=== PATIENT | female | born 1970 | race Caucasian/White ===

== ENCOUNTER 2020-01-01 14:51 | Outpatient (CLI) | payer OTHER, SELFPAY ==
--- NOTE | ~2020-01-01 | CT_ITS ---
EXAMINATION: CT abdomen pelvis wo/w con DATE: 01/01/2020 15:47 INDICATION: Hematuria. Abdominal pain. Dysuria. TECHNIQUE: Computed tomography (CT) of the abdomen and pelvis was performed without and with intraven ous contrast using a total of 130 mL Omnipaque-350 intravenous contrast with a double-bolus technique for simultaneous opacification of the renal parenchyma and renal collecting system. Automated exposu re control and iterative reconstruction technique were employed. The dose-length product was 2058.69 mGy-cm. COMPARISON: CT abdomen and pelvis 07/11/2018 FINDINGS: The visualized portions of the lung bases demonstrate mild atelectasis. A calcified left lung nodule and calcified left hilar lymph nodes are consistent with old granulomatous disease. No pleural effusi on. Cardiomegaly is noted. No pericardial effusion. There is a chronic 1.8 cm low-attenuation lesion in the liver, likely benign. There is a gallstone in the gallbladder, which is contracted. Calcificat ions in the spleen are consistent with old granulomatous disease. The pancreas and adrenal glands are normal. There are 5 stones in right kidney measuring up to 5 mm. There are 2 stones in left kidney m easuring up to 3 mm. There are cysts in the kidneys measuring up to 10 mm on the left. Right ureter i s not well-opacified distally. The ureters are normal. There is a filter in the infrarenal inferior v steffanie cava. The bladder is normal. There are no dilated loops of bowel. The appendix is normal. There a re no pathologically enlarged lymph nodes. There is no free intraperitoneal fluid. There is moderate thoracolumbar spondylosis. IMPRESSION: 1. Bilateral nonobstructing kidney stones. Reviewed, dictated and finalized at location B.
[2020-01-01 15:27] LABS: Estimated Glomerular Filt Rate > 60
== END 2020-01-01 14:52 | disposition home or self-care (01) ==
PROVIDERS: PCP Family Medicine; Visit Provider Physician Assistant
DX: N20.0 Calculus of kidney (principal)
CPT/HCPCS: 36415; 74178; Q9967

== ENCOUNTER 2020-01-04 09:27 | Outpatient (CLI) | payer OTHER, SELFPAY ==
[2020-01-04 09:45] LABS: Basophils Absolute Auto 0.1 K/mm3 (0.0-0.1); Basophils Percent Auto 0.7 % (0.2-1.2); Eosinophils Absolute Auto 0.4 K/mm3 (0-0.3); Eosinophils Percent Auto 3.3 % (0-4.4); Hematocrit 43.7 % (37.0-47.0); Hemoglobin 13.8 g/dL (12.0-15.0); Immature Granulocyte Absolute 0.05 K/mm3 (0.00-0.031); Immature Granulocyte Percent A 0.4 % (0-0.5); Lymphocytes Absolute Auto 1.67 K/mm3 (0.9-3.2); Lymphocytes Percent Auto 14.2 % (18.3-44.2); Mean Corpuscular HGB Conc 31.6 g/dl (32-36); Mean Corpuscular Hemoglobin 29.6 pg (26-34); Mean Corpuscular Volume 93.8 fl (80-100); Mean Platelet Volume 9.9 fl (7.4-10.4); Monocytes Absolute Auto 0.9 K/mm3 (0.1-0.6); Monocytes Percent Auto 7.4 % (2.6-8.5); Neutrophils Absolute Auto 8.7 K/mm3 (1.3-6.7); Platelet Count Result 355 k/mm3 (150-375); Red Blood Count 4.66 M/mm3 (4.2-5.4); Red Cell Distribution Width 13.8 % (11.5-14.5); White Blood Count 11.7 K/mm3 (4.5-10.0)
[2020-01-04 09:51] LABS: Add Urine Microscopic? YES; Appearance Urine Clear (Clear); Bilirubin Urine Negative (Negative); Blood Urine 2+ (Negative); Color Urine Yellow (Yellow); Glucose Urine UA Negative (Negative); Ketones Urine Negative (Negative); Leukocyte Esterase Ur Trace LEU/UL (NEGATIVE); Mucus Urine Few /lpf; Nitrate Urine Negative (Negative); Protein Urine Negative (Negative); RBC Urine 21-50 /hpf (0-2); Specific Grav Ur 1.017 (1.001-1.035); Squamous Epithelial Cell Urine Moderate /hpf (Few); Urobilinogen Urine Negative mg/dL (<2.0)
[2020-01-04 10:04] LABS: Alanine Aminotransferase 18 U/L (4-35); Albumin Level 4.2 g/dL (3.5-5.1); Alkaline Phosphatase 93 U/L (38-126); Amylase 57 U/L (30-110); Anion Gap 5 mmol/L (8-16); Aspartate Amino Transferase 23 U/L (14-36); Bilirubin,Total 0.1 mg/dL (0.2-1.3); Blood Urea Nitrogen 16 mg/dL (7-17); Calcium 8.9 mg/dL (8.4-10.2); Carbon Dioxide 31 mmol/L (22-30); Chloride 104 mmol/L (98-107); Estimated Glomerular Filt Rate > 60; Glucose 84 mg/dL (65-105); Lipase 40 U/L (23-300); Potassium 3.6 mmol/L (3.4-5.0); Sodium 140 mmol/L (137-145)
== END 2020-01-04 09:28 | disposition home or self-care (01) ==
LOC: ANHLAB 09:29
PROVIDERS: PCP Family Medicine; Visit Provider Physician Assistant
DX: R10.9 Unspecified abdominal pain (principal); R11.2 Nausea with vomiting, unspecified; R19.7 Diarrhea, unspecified; R30.0 Dysuria
CPT/HCPCS: 36415; 80053; 81001; 82150; 83690; 84443; 85025; 87086

== ENCOUNTER 2020-07-09 16:26 | Emergency (ER) | payer OTHER, SELFPAY ==
--- NOTE | ~2020-07-09 | CT_ITS ---
EXAMINATION: CTA chest PE protocol EXAM DATE: 07/09/2020 20:09 INDICATION: Shortness of breath. TECHNIQUE: Spiral CTA of the chest (pulmonary arteries) was performed with 100 cc Omnipaque 350 intr avenous contrast injection. Images were acquired during the pulmonary arterial phase. Coronal maxi mum intensity projection 3D-reconstructions were created by the technologist on dedicated workstation . Axial, coronal and sagittal reformatted images were reviewed. The dose-length product (DLP) for t his examination was 339.16 mGy-cm. The exposure was tailored according to patient size (auto mA exp osure control), and iterative reconstruction (ASIR) was used as additional dose reduction technique. Correlation is made to abdomen pelvis CT 07/11/2018. FINDINGS: Pulmonary arteries are well opacified and without intraluminal filling defects. No thora cic aortic dissection. There is 4 mm right lateral sulcus pulmonary nodule unchanged compared to 201 9, noncalcified granuloma. There is linear lingular atelectasis. There are no pleural or pericardial effusions. Tracheobronchial tree is patent. There is no mediastinal, hilar or axillary lymphaden opathy. There is no pneumothorax. Heart normal in size. No evidence of coronary arterial calcif ication. Peripherally calcified gallstone. There is thoracic spondylosis without osteoblastic or os teolytic lesions identified. IMPRESSION: 1. No acute cardiac pulmonary findings. 2. Linear left basilar atelectasis. Reviewed, dictated and finalized at location A. F HUMAN RESOURCES OFFICER
--- NOTE | ~2020-07-09 | XR_ITS ---
EXAMINATION: XR chest 2V EXAM DATE: 07/09/2020 17:33 INDICATION: Lower extremity swelling, history of blood clots and hypertension. TECHNIQUE: Frontal and lateral projections of the chest obtained and reviewed. There is no prior pradeep dy for comparison. FINDINGS: Small amount of linear left basilar atelectasis. The lungs are otherwise clear. There are no pleural effusions. The cardiomediastinal silhouette is within normal limits. There is no pneumo thorax suspected. The bones and soft tissues are unremarkable. IMPRESSION: Small amount of linear left basilar atelectasis. Reviewed, dictated and finalized at location A. K CUTTER
[2020-07-09 16:36] VITALS: BP 91/63; PULSE 83; RESP 18; TEMP 35.9; O2SAT 100
--- NOTE | 2020-07-09 16:38 | ECG_ITS ---
Measurements Intervals [place] Rate: 82 P: 58 NM: 170 QRS: 46 QRSD: 113 T: 44 QT: 364 QTc: 427 Interpretive Statements SINUS RHYTHM EARLY PRECORDIAL R/S TRANSITION, CONSIDER RIGHT VENTRICULAR HYPERTROPHY MINIMAL Q WAVES- HIGH LATERAL LEADS BASELINE ARTIFACT- I, III, AVL BORDERLINE ECG Electronically Signed On 07-10-2020 9:36:10 ER REGISTRAR by Ced Medina D.O.
[2020-07-09 16:57] LABS: Basophils Absolute Auto 0.1 K/mm3 (0.0-0.1); Basophils Percent Auto 0.4 % (0.2-1.2); Eosinophils Absolute Auto 0.4 K/mm3 (0-0.3); Eosinophils Percent Auto 2.6 % (0-4.4); Hematocrit 43.1 % (37.0-47.0); Immature Granulocyte Absolute 0.11 K/mm3 (0.00-0.031); Immature Granulocyte Percent A 0.7 % (0-0.5); Lymphocytes Absolute Auto 1.94 K/mm3 (0.9-3.2); Lymphocytes Percent Auto 12.4 % (18.3-44.2); Mean Corpuscular HGB Conc 32.5 g/dl (32-36); Mean Corpuscular Hemoglobin 30.3 pg (26-34); Mean Corpuscular Volume 93.3 fl (80-100); Mean Platelet Volume 10.2 fl (7.4-10.4); Monocytes Absolute Auto 1.5 K/mm3 (0.1-0.6); Monocytes Percent Auto 9.6 % (2.6-8.5); Neutrophils Absolute Auto 11.6 K/mm3 (1.3-6.7); Neutrophils Percent Auto 74.3 % (45.5-73.1); Platelet Count Result 212 k/mm3 (150-375); Red Blood Count 4.62 M/mm3 (4.2-5.4); Red Cell Distribution Width 12.6 % (11.5-14.5); White Blood Count 15.6 K/mm3 (4.5-10.0)
[2020-07-09 17:10] LABS: Anion Gap 7 mmol/L (8-16); Blood Urea Nitrogen 23 mg/dL (7-17); Calcium 9.7 mg/dL (8.4-10.2); Carbon Dioxide 30 mmol/L (22-30); Chloride 101 mmol/L (98-107); Estimated CRCL calculation 87 ml/min; Estimated Glomerular Filt Rate > 60; Glucose 132 mg/dL (65-105); Potassium 3.7 mmol/L (3.4-5.0); Sodium 138 mmol/L (137-145)
--- NOTE | 2020-07-09 17:26 | PC.NURSE ---
called chem and heme, added on PT INR, PTT, Hepatic Panel, Trop Baseline, and BNP [id number]
[2020-07-09 17:42] LABS: Partial Thromboplastin Time 28.7 SECONDS (22.3-36.8); Prothrombin Time 13.4 Seconds (11.1-14.7)
[2020-07-09 17:46] LABS: Alanine Aminotransferase 25 U/L (4-35); Albumin Level 3.9 g/dL (3.5-5.1); Alkaline Phosphatase 120 U/L (38-126); Aspartate Amino Transferase 39 U/L (14-36); Bilirubin,Total 0.7 mg/dL (0.2-1.3)
[2020-07-09 17:59] LABS: NT Pro B Type Natriuretic Pept 69 PG/ML (5-100); Troponin I < 0.012 ng/mL (0.000-0.034)
--- NOTE | 2020-07-09 19:15 | ED.GENADULT ---
HPI - General Adult General Chief complaint: Extremity Problem,Nontraumatic Stated complaint: fluid retention in lower legs Time Seen by Provider: 07/09/20 18:39 Source: patient History of Present Illness HPI narrative: Patient is a 50 y/o female complaining of severe bilateral leg swelling for 2 weeks. There is no alleviating or exacerbating factor. She also has some SOB. She states that she has history of DVT and PE. However, she is not on anticoagulation at this time. Review of Systems Constitutional: Constitutional: Denies chills, Denies fever(s), Denies headache(s) and Denies weakness Eyes: Eyes: Denies blurry vision ENT: Denies headache(s) and Denies neck pain Cardiovascular: Cardiovascular: Denies chest pain, Reports leg edema and Reports dyspnea Respiratory: Respiratory: Denies cough and Reports dyspnea Gastrointestinal: Gastrointestinal: Denies abdominal pain, Denies diarrhea, Denies nausea and Denies vomiting Genitourinary: Genitourinary: Denies hematuria and Denies dysuria Musculoskeletal: Musculoskeletal: Denies back pain and Denies neck pain Neurologic: Denies headache(s) and Denies weakness Exam Const: General: no acute distress and well developed Orientation/consciousness: oriented to person, oriented to place, oriented to time and patient oriented x3 HENMT: Head: normocephalic Ears: external ears normal General nose exam: Normal external nose present Eyes: General: appearance normal, both eyes and all related structures Conjunctivae: conjunctivae normal Neck: Neck: normal visual inspection and full ROM Chest: Chest palpation & inspection: normal inspection of the chest and no tenderness Resp: Effort & Inspection: normal respiratory effort Auscultation: clear to auscultation bilaterally Cardio: Rate: regular rate Rhythm: regular rhythm GI: GI Palp: No abdominal tenderness and Yes Soft to palpation Skin: General skin exam: normal color and turgor normal Neuro: General: oriented to person, oriented to place, oriented to time and patient oriented x3 Cognition (Neuro): normal cognition Extrem: General: normal to inspection, full ROM and edema bilateral Psych: Appearance: grossly normal Mental Status: mental status grossly normal Affect: normal affect Course Consultations Consultation #1: Discussed with Dr. Beaulieu, who agrees with plan for discharge and return in AM for outpatient venous doppler. He is aware of leukocytosis and will do follow up. Date: 07/09/20 Time: 20:50 Vital Signs Vital signs: Vital Signs Temperature 35.9 C L 07/09/20 16:36 Pulse Rate 83 07/09/20 16:36 Respiratory Rate 18 07/09/20 16:36 Blood Pressure 91/63 L 07/09/20 16:36 Pulse Oximetry 100 07/09/20 16:36 Temperature 35.9 C L 07/09/20 16:36 Pulse Rate 83 07/09/20 19:37 Respiratory Rate 18 07/09/20 19:37 Blood Pressure 97/71 L 07/09/20 19:37 Pulse Oximetry 97 07/09/20 19:37 Medical Decision Making Vital Signs Vital Signs: Vital Signs Temperature 35.9 C L 07/09/20 16:36 Pulse Rate 83 07/09/20 16:36 Respiratory Rate 18 07/09/20 16:36 Blood Pressure 91/63 L 07/09/20 16:36 Pulse Oximetry 100 07/09/20 16:36 Temperature 35.9 C L 07/09/20 16:36 Pulse Rate 83 07/09/20 19:37 Respiratory Rate 18 07/09/20 19:37 Blood Pressure 97/71 L 07/09/20 19:37 Pulse Oximetry 97 07/09/20 19:37 Lab Data Result diagrams: 07/09/20 16:48 07/09/20 16:49 Labs: Lab Results 07/09/20 07/09/20 07/09/20 Range/Units 16:48 16:48 16:49 WBC 15.6 H (4.5-10.0) K/mm3 RBC 4.62 (4.2-5.4) M/mm3 Hgb 14.0 (12.0-15.0) g/dL Hct 43.1 (37.0-47.0) % MCV 93.3 (80-100) fl MCH 30.3 (26-34) pg MCHC 32.5 (32-36) g/dl RDW 12.6 (11.5-14.5) % Plt Count 212 (150-375) k/mm3 MPV 10.2 (7.4-10.4) fl Immature Gran % (Auto) 0.7 H (0-0.5) % Neut % (Auto) 74.3 H (45.5-73.1) % Lymph % (Auto) 12.4 L (
[2020-07-09 19:37] VITALS: BP 97/71; PULSE 83; RESP 18; O2SAT 97
--- NOTE | 2020-07-09 21:19 | PC.NURSE ---
Pt standing at end of stretcher (both side rails up). Monitors removed on floor, gown on floor.Pt upset that have to return for ultrasound. Made arrangements for ultrasound for 07/10/2020 at 0730. Pt wanting a later appt. called radiology was told they to call the schedule line for a different time due to inability to view schedule. Pt became upset and stated I shouldnt have to call to make a different appt.
== END 2020-07-09 21:32 | disposition home or self-care (01) ==
PROVIDERS: Emergency Medicine; Emergency Provider Emergency Medicine; PCP Family Medicine
DX: M79.89 Other specified soft tissue disorders (principal); R06.02 Shortness of breath; D72.829 Elevated white blood cell count, unspecified; Z86.718 Personal history of other venous thrombosis and embolism; Z86.711 Personal history of pulmonary embolism; R94.31 Abnormal electrocardiogram [ECG] [EKG]; R91.8 Other nonspecific abnormal finding of lung field
CPT/HCPCS: 36415; 71046; 71275; 80048; 80076; 83880; 84484; 85025; 85610; 85730; 93005; 99284; Q9967

== ENCOUNTER 2020-07-11 07:36 | Outpatient (CLI) | payer OTHER, SELFPAY ==
--- NOTE | ~2020-07-11 | US_ITS ---
EXAMINATION: US venous doppler [facility] DATE: 07/11/2020 08:20 INDICATION: Bilateral lower limb swelling TECHNIQUE: Fortune scale images without and with compression and Doppler images of the bilateral lower e xtremity veins were obtained. COMPARISON: None FINDINGS: There is thrombosis of the right common femoral vein, profunda femoral vein, femoral vein, popliteal vein, and greater saphenous vein. The peroneal trunk and posterior tibial veins patent. There is thrombosis of the left common femoral vein, profunda femoral vein, femoral vein, popliteal v ein, and greater saphenous vein. The peroneal trunk and posterior tibial veins patent. IMPRESSION: 1. Extensive bilateral deep venous thrombosis as described above. Reviewed, dictated and finalized at location A. HAND ENGINEER
== END 2020-07-11 07:37 | disposition home or self-care (01) ==
PROVIDERS: PCP Family Medicine; Visit Provider Family Medicine
DX: I82.433 Acute embolism and thrombosis of popliteal vein, bilateral (principal); I82.413 Acute embolism and thrombosis of femoral vein, bilateral; I82.493 Acute embolism and thrombosis of other specified deep vein of lower extremity, bilateral
CPT/HCPCS: 93970

== ENCOUNTER 2020-07-19 15:17 | Outpatient (CLI) | payer OTHER, SELFPAY ==
[2020-07-19 15:43] LABS: Basophils Absolute Auto 0.1 K/mm3 (0.0-0.1); Basophils Percent Auto 0.9 % (0.2-1.2); Eosinophils Absolute Auto 0.5 K/mm3 (0-0.3); Eosinophils Percent Auto 3.3 % (0-4.4); Hematocrit 35.7 % (37.0-47.0); Hemoglobin 11.2 g/dL (12.0-15.0); Immature Granulocyte Absolute 0.59 K/mm3 (0.00-0.031); Lymphocytes Percent Auto 11.7 % (18.3-44.2); Mean Corpuscular HGB Conc 31.4 g/dl (32-36); Mean Corpuscular Hemoglobin 29.2 pg (26-34); Mean Corpuscular Volume 93.2 fl (80-100); Mean Platelet Volume 8.2 fl (7.4-10.4); Monocytes Absolute Auto 1.2 K/mm3 (0.1-0.6); Monocytes Percent Auto 7.9 % (2.6-8.5); Neutrophils Absolute Auto 10.5 K/mm3 (1.3-6.7); Neutrophils Percent Auto 72.2 % (45.5-73.1); Platelet Count Result 747 k/mm3 (150-375); Red Blood Count 3.83 M/mm3 (4.2-5.4); Red Cell Distribution Width 12.9 % (11.5-14.5); White Blood Count 14.6 K/mm3 (4.5-10.0)
[2020-07-19 15:55] LABS: Alanine Aminotransferase 18 U/L (4-35); Albumin Level 3.5 g/dL (3.5-5.1); Alkaline Phosphatase 150 U/L (38-126); Anion Gap 2 mmol/L (8-16); Aspartate Amino Transferase 33 U/L (14-36); Bilirubin,Total 0.3 mg/dL (0.2-1.3); Blood Urea Nitrogen 21 mg/dL (7-17); Calcium 9.3 mg/dL (8.4-10.2); Carbon Dioxide 35 mmol/L (22-30); Chloride 103 mmol/L (98-107); Estimated Glomerular Filt Rate > 60; Glucose 94 mg/dL (65-105); Potassium 3.8 mmol/L (3.4-5.0); Sodium 140 mmol/L (137-145)
== END 2020-07-19 15:18 | disposition home or self-care (01) ==
LOC: ANHLAB 15:18
PROVIDERS: PCP Family Medicine; Visit Provider Physician Assistant
DX: D72.829 Elevated white blood cell count, unspecified (principal); I10 Essential (primary) hypertension; M79.89 Other specified soft tissue disorders
CPT/HCPCS: 36415; 80053; 84443; 85025

== ENCOUNTER 2020-07-30 14:33 | Outpatient (CLI) | payer OTHER, SELFPAY ==
[2020-07-30 14:52] LABS: Basophils Absolute Auto 0.1 K/mm3 (0.0-0.1); Basophils Percent Auto 0.8 % (0.2-1.2); Eosinophils Absolute Auto 0.3 K/mm3 (0-0.3); Eosinophils Percent Auto 2.6 % (0-4.4); Immature Granulocyte Absolute 0.06 K/mm3 (0.00-0.031); Immature Granulocyte Percent A 0.6 % (0-0.5); Lymphocytes Absolute Auto 1.29 K/mm3 (0.9-3.2); Lymphocytes Percent Auto 12.6 % (18.3-44.2); Mean Corpuscular HGB Conc 31.4 g/dl (32-36); Mean Corpuscular Hemoglobin 29.6 pg (26-34); Mean Corpuscular Volume 94.1 fl (80-100); Mean Platelet Volume 8.6 fl (7.4-10.4); Monocytes Absolute Auto 1.1 K/mm3 (0.1-0.6); Monocytes Percent Auto 11.1 % (2.6-8.5); Neutrophils Absolute Auto 7.4 K/mm3 (1.3-6.7); Neutrophils Percent Auto 72.3 % (45.5-73.1); Platelet Count Result 486 k/mm3 (150-375); Red Blood Count 3.72 M/mm3 (4.2-5.4); Red Cell Distribution Width 13.8 % (11.5-14.5); White Blood Count 10.2 K/mm3 (4.5-10.0)
[2020-07-30 15:03] LABS: Alanine Aminotransferase 15 U/L (4-35); Albumin Level 3.6 g/dL (3.5-5.1); Alkaline Phosphatase 118 U/L (38-126); Anion Gap 5 mmol/L (8-16); Aspartate Amino Transferase 25 U/L (14-36); Bilirubin,Total 0.3 mg/dL (0.2-1.3); Blood Urea Nitrogen 11 mg/dL (7-17); Calcium 8.9 mg/dL (8.4-10.2); Carbon Dioxide 32 mmol/L (22-30); Chloride 102 mmol/L (98-107); Estimated Glomerular Filt Rate > 60; Glucose 85 mg/dL (65-105); Potassium 3.5 mmol/L (3.4-5.0); Sodium 139 mmol/L (137-145)
[2020-07-30 15:08] LABS: Prothrombin Time 13.6 Seconds (11.1-14.7)
== END 2020-07-30 14:34 | disposition home or self-care (01) ==
LOC: ANHLAB 14:34
PROVIDERS: PCP Family Medicine; Visit Provider Physician Assistant
DX: D72.829 Elevated white blood cell count, unspecified (principal); I82.409 Acute embolism and thrombosis of unspecified deep veins of unspecified lower extremity; I10 Essential (primary) hypertension
CPT/HCPCS: 36415; 80053; 85025; 85610

== ENCOUNTER 2020-08-02 09:55 | Outpatient (CLI) | payer OTHER, SELFPAY ==
[2020-08-02 10:28] LABS: INR 1.2; Prothrombin Time 15.8 Seconds (11.1-14.7)
== END 2020-08-02 09:56 | disposition home or self-care (01) ==
LOC: ANHLAB 09:57
PROVIDERS: PCP Family Medicine; Visit Provider Physician Assistant
DX: I82.409 Acute embolism and thrombosis of unspecified deep veins of unspecified lower extremity (principal)
CPT/HCPCS: 36415; 85610

== ENCOUNTER 2020-08-07 10:12 | Outpatient (CLI) | payer OTHER, SELFPAY ==
[2020-08-07 10:54] LABS: INR 1.6
== END 2020-08-07 10:13 | disposition home or self-care (01) ==
PROVIDERS: PCP Family Medicine; Visit Provider Physician Assistant
DX: I82.409 Acute embolism and thrombosis of unspecified deep veins of unspecified lower extremity (principal)
CPT/HCPCS: 36415; 85610

== ENCOUNTER 2020-08-12 12:16 | Outpatient (CLI) | payer OTHER, SELFPAY ==
[2020-08-12 12:51] LABS: INR 2.3; Prothrombin Time 25.5 Seconds (11.1-14.7)
== END 2020-08-12 12:17 | disposition home or self-care (01) ==
LOC: ANHLAB 12:16
PROVIDERS: PCP Family Medicine; Visit Provider Family Medicine
DX: I82.409 Acute embolism and thrombosis of unspecified deep veins of unspecified lower extremity (principal)
CPT/HCPCS: 36415; 85610

== ENCOUNTER 2020-08-20 14:05 | Outpatient (CLI) | payer OTHER, SELFPAY ==
[2020-08-20 14:38] LABS: Prothrombin Time 31.3 Seconds (11.1-14.7)
== END 2020-08-20 14:06 | disposition home or self-care (01) ==
LOC: ANHLAB 14:07
PROVIDERS: PCP Family Medicine; Visit Provider Physician Assistant
DX: I82.409 Acute embolism and thrombosis of unspecified deep veins of unspecified lower extremity (principal)
CPT/HCPCS: 36415; 85610

== ENCOUNTER 2020-09-11 11:38 | Outpatient (CLI) | payer OTHER, SELFPAY ==
[2020-09-11 12:41] LABS: Basophils Absolute Auto 0.1 K/mm3 (0.0-0.1); Basophils Percent Auto 0.7 % (0.2-1.2); Eosinophils Absolute Auto 0.2 K/mm3 (0-0.3); Eosinophils Percent Auto 2.5 % (0-4.4); Hematocrit 39.7 % (37.0-47.0); Hemoglobin 12.2 g/dL (12.0-15.0); Immature Granulocyte Absolute 0.03 K/mm3 (0.00-0.031); Immature Granulocyte Percent A 0.4 % (0-0.5); Lymphocytes Absolute Auto 1.42 K/mm3 (0.9-3.2); Lymphocytes Percent Auto 19.7 % (18.3-44.2); Mean Corpuscular HGB Conc 30.7 g/dl (32-36); Mean Corpuscular Hemoglobin 28.2 pg (26-34); Mean Corpuscular Volume 91.9 fl (80-100); Mean Platelet Volume 9.3 fl (7.4-10.4); Monocytes Absolute Auto 0.6 K/mm3 (0.1-0.6); Monocytes Percent Auto 8.2 % (2.6-8.5); Neutrophils Absolute Auto 4.9 K/mm3 (1.3-6.7); Neutrophils Percent Auto 68.5 % (45.5-73.1); Platelet Count Result 318 k/mm3 (150-375); Red Blood Count 4.32 M/mm3 (4.2-5.4); Red Cell Distribution Width 14.1 % (11.5-14.5); White Blood Count 7.2 K/mm3 (4.5-10.0)
[2020-09-11 12:48] LABS: Add Urine Microscopic? YES; Appearance Urine Cloudy (Clear); Bilirubin Urine Negative (Negative); Blood Urine 3+ (Negative); Color Urine Yellow (Yellow); Glucose Urine UA Negative (Negative); Ketones Urine Negative (Negative); Leukocyte Esterase Ur Trace LEU/UL (Negative); Mucus Urine Few /lpf; Nitrate Urine Negative (Negative); Protein Urine 2+ mg/dL (Negative); Squamous Epithelial Cell Urine Occasional /hpf (Few); Urobilinogen Urine Negative mg/dL (<2.0)
[2020-09-11 12:53] LABS: INR 1.9; Prothrombin Time 22.3 Seconds (11.1-14.7)
[2020-09-11 12:55] LABS: Alanine Aminotransferase 21 U/L (4-35); Alkaline Phosphatase 121 U/L (38-126); Anion Gap 5 mmol/L (8-16); Aspartate Amino Transferase 37 U/L (14-36); Bilirubin,Total 0.5 mg/dL (0.2-1.3); Blood Urea Nitrogen 13 mg/dL (7-17); Carbon Dioxide 28 mmol/L (22-30); Chloride 106 mmol/L (98-107); Estimated Glomerular Filt Rate > 60; Glucose 98 mg/dL (65-105); Potassium 4.2 mmol/L (3.4-5.0); Sodium 139 mmol/L (137-145)
[2020-09-11 12:56] LABS: Alanine Aminotransferase 22 U/L (4-35); Albumin Level 4.1 g/dL (3.5-5.1); Alkaline Phosphatase 125 U/L (38-126); Anion Gap 5 mmol/L (8-16); Aspartate Amino Transferase 37 U/L (14-36); Bilirubin,Total 0.5 mg/dL (0.2-1.3); Blood Urea Nitrogen 13 mg/dL (7-17); Calcium 9.1 mg/dL (8.4-10.2); Carbon Dioxide 28 mmol/L (22-30); Chloride 107 mmol/L (98-107); Estimated Glomerular Filt Rate > 60; Glucose 99 mg/dL (65-105); Potassium 4.4 mmol/L (3.4-5.0); Sodium 140 mmol/L (137-145)
[2020-09-11 13:09] LABS: Creatinine Urine 130.9 mg/dL; Total Protein Urine Random 37 mg/dL; Ur Ttl Prot Creatinine Ratio 0.28 mg/mg (0-0.20)
[2020-09-11 13:17] LABS: Free T4 Free Thyroxine 1.05 ng/mL (0.78-2.19)
[2020-09-11 13:22] LABS: Erythrocyte Sedimentation Rate 21 mm/hr (0-20)
[2020-09-11 13:31] LABS: Thyroid Stimulating Hormone 0.341 uIU/mL (0.465-4.680)
[2020-09-14 07:59] LABS: Triiodothyronine T3 Free 2.7 pg/mL (2.3-4.2)
== END 2020-09-11 11:39 | disposition home or self-care (01) ==
PROVIDERS: PCP Family Medicine; Visit Provider Physician Assistant
DX: I82.409 Acute embolism and thrombosis of unspecified deep veins of unspecified lower extremity (principal); R06.9 Unspecified abnormalities of breathing; R06.09 Other forms of dyspnea; I26.99 Other pulmonary embolism without acute cor pulmonale
CPT/HCPCS: 36415; 80053; 81001; 82570; 84156; 84436; 84439; 84443; 84481; 85025; 85610; 85652

== ENCOUNTER 2020-09-27 10:27 | Outpatient (CLI) | payer OTHER, SELFPAY ==
[2020-09-27 11:03] LABS: Add Urine Microscopic? YES; Appearance Urine Clear (Clear); Bacteria Urine Trace /hpf; Bilirubin Urine Negative (Negative); Blood Urine 3+ (Negative); Color Urine Straw (Yellow); Glucose Urine UA Negative (Negative); Ketones Urine Negative (Negative); Leukocyte Esterase Ur Negative LEU/UL (NEGATIVE); Mucus Urine Rare /lpf; Nitrate Urine Negative (Negative); Protein Urine Negative (Negative); RBC Urine >75 /hpf (0-2); Specific Grav Ur 1.009 (1.001-1.035); Squamous Epithelial Cell Urine Occasional /hpf (Few); Urobilinogen Urine Negative mg/dL (<2.0)
[2020-09-27 11:08] LABS: INR 2.7; Prothrombin Time 29.3 Seconds (11.1-14.7)
== END 2020-09-27 10:28 | disposition home or self-care (01) ==
PROVIDERS: PCP Family Medicine; Visit Provider Physician Assistant
DX: I82.409 Acute embolism and thrombosis of unspecified deep veins of unspecified lower extremity (principal); R31.9 Hematuria, unspecified
CPT/HCPCS: 36415; 81001; 85610; 87086

== ENCOUNTER 2020-10-09 13:29 | Outpatient (CLI) | payer OTHER, SELFPAY ==
--- NOTE | ~2020-10-09 | CT_ITS ---
EXAMINATION: CT abdomen pelvis wo con DATE: 10/09/2020 13:50 INDICATION: Gross hematuria. Cramping, diarrhea. TECHNIQUE: Computed tomography (CT) of the abdomen and pelvis was performed without intravenous contr ast. Automated exposure control and iterative reconstruction technique were employed. Exam dose: 987 .02 mGy-cm total exam DLP. COMPARISON: 01/01/2020 CT abdomen pelvis without and with IV contrast material FINDINGS: Calcified left hilar nodes and calcified left lower lobe pulmonary granuloma. No pulmonary infiltrate or consolidation is noted in the included lower lung zones. Heart size is within normal range. No pericardial or pleural effusion. 1.7 cm calcified gallstone. The gallbladder is contracted. No pericholecystic fluid or fat stranding. No bile duct or pancreatic duct dilatation. No hepatic, splenic, pancreatic, and adrenal or suspicious renal space occupying mass lesion is evide nt on this limited noncontrast examination. Distal left ureteral approximately 5 mm calculus with prominent proximal right hydroureteronephrosis. There are up to 9 nonobstructing right renal calculi. There are 2 nonobstructing left renal calculi. No left ureteral calculus or left hydroureteronephrosis. The urinary bladder is evacuated. The uterus and adnexal areas are unremarkable. IVC filter. Normal caliber of the abdominal aorta. No intraperitoneal or retroperitoneal or pelvic mass lesion or adenopathy or ascites. There are some fluid levels of the colon, an abnormal finding in the absence of recent enemas. There are also some small bowel air-fluid levels. No small bowel or large bowel dilatation. The findings ma y be due to mild adynamic ileus or enterocolitis. Mild fat-containing umbilical hernia. Diffuse osteopenia. There is degenerative change at the apophyseal joints with associated minimal gra de 1 anterolisthesis at L3-4 and L5-S1. There is degenerative spurring of the lower thoracic vertebra l bodies and to a lesser extent lumbar spine, primarily at L1-2. IMPRESSION: Distal left ureteral 5 mm obstructing calculus with proximal prominent right hydroureter onephrosis Bilateral nonobstructive nephrolithiasis Cholelithiasis Small and large bowel air-fluid levels which may be due to mild adynamic ileus or enterocolitis Reviewed, dictated and finalized at Location A. Reviewed, dictated and finalized at location B. IMPRESSION: Distal left ureteral 5 mm obstructing calculus with proximal promi nent right hydroureteronephrosis Bilateral nonobstructive nephrolithiasis Cholelithiasis Small and large bowel air-fluid levels which may be due to mild adynamic ileus or enterocolitis
== END 2020-10-09 13:30 ==
PROVIDERS: PCP Family Medicine; Visit Provider Physician Assistant
DX: K80.20 Calculus of gallbladder without cholecystitis without obstruction (principal); N20.2 Calculus of kidney with calculus of ureter
CPT/HCPCS: 74176

== ENCOUNTER 2020-10-31 08:39 | Outpatient (CLI) | payer MEDICAID, SELFPAY ==
[2020-10-31 09:07] LABS: Prothrombin Time 51.4 Seconds (11.1-14.7)
[2020-10-31 09:28] LABS: INR 5.7
== END 2020-10-31 08:40 | disposition home or self-care (01) ==
PROVIDERS: PCP Family Medicine; Visit Provider Physician Assistant
DX: Z51.81 Encounter for therapeutic drug level monitoring (principal); Z79.899 Other long term (current) drug therapy
CPT/HCPCS: 36415; 85610

== ENCOUNTER 2020-11-14 07:29 | Outpatient (RCR) | payer OTHER, SELFPAY ==
[2020-10-31 09:54] VITALS: BMI 36.3
--- NOTE | 2020-11-07 12:20 | PCWOUND ---
WOCN NOTE patient called and left voicemail to cancel appointment for today, will call to reschedule.
--- NOTE | 2020-11-08 09:47 | PCWOUND ---
WOCN NOTE patient called to cancel appointment for today again due to family issues. Patient was already scheduled for Wednesday11/11/20 at 1300. Patient states she'll take appointment time.
--- NOTE | 2020-11-18 14:12 | PCWOUND ---
WOCN NOTE patient did not show up for her scheduled appointment, no phone call was made to cancel or reschedule.
--- NOTE | 2020-11-20 15:01 | PCWOUND ---
WOCN NOTE call was made to patient on 11/19/20 to notify patient of missed appointment on Wednesday11/18/20 and to see if she would be coming to the next appointment that was already scheduled for 11/21/20. Phone call went straight to patient's voicemail. Message was left for the patient to contact us. Patient has not reached out to the wound center. Appointment for 11/21/20 has been cancelled.
== END 2020-11-27 08:55 | disposition home or self-care (01) ==
LOC: ANHWOC 07:29
PROVIDERS: PCP Family Medicine; Visit Provider Physician Assistant
DX: S81.802D Unspecified open wound, left lower leg, subsequent encounter (principal)
CPT/HCPCS: 29581; A9270

== ENCOUNTER 2021-02-04 15:11 | Emergency (ER) | payer OTHER, SELFPAY ==
[2021-02-04 15:30] VITALS: BP 138/77; PULSE 78; RESP 16; TEMP 37.1; O2SAT 99
[2021-02-04 16:40] VITALS: BP 146/89; PULSE 84; RESP 18; O2SAT 98
[2021-02-04 17:05] LABS: Basophils Absolute Auto 0.1 K/mm3 (0.0-0.1); Basophils Percent Auto 0.7 % (0.2-1.2); Eosinophils Absolute Auto 0.4 K/mm3 (0-0.3); Eosinophils Percent Auto 3.1 % (0-4.4); Hematocrit 33.7 % (37.0-47.0); Hemoglobin 10.3 g/dL (12.0-15.0); Immature Granulocyte Absolute 0.04 K/mm3 (0.00-0.031); Immature Granulocyte Percent A 0.4 % (0-0.5); Lymphocytes Absolute Auto 1.67 K/mm3 (0.9-3.2); Lymphocytes Percent Auto 14.8 % (18.3-44.2); Mean Corpuscular HGB Conc 30.6 g/dl (32-36); Mean Corpuscular Hemoglobin 27.5 pg (26-34); Mean Corpuscular Volume 89.9 fl (80-100); Mean Platelet Volume 8.9 fl (7.4-10.4); Monocytes Percent Auto 8.6 % (2.6-8.5); Neutrophils Absolute Auto 8.2 K/mm3 (1.3-6.7); Neutrophils Percent Auto 72.4 % (45.5-73.1); Platelet Count Result 435 k/mm3 (150-375); Red Blood Count 3.75 M/mm3 (4.2-5.4); Red Cell Distribution Width 13.9 % (11.5-14.5); White Blood Count 11.3 K/mm3 (4.5-10.0)
--- NOTE | 2021-02-04 17:08 | ED.GENADULT ---
HPI - General Adult General Chief complaint: Extremity Injury, Lower Stated complaint: Pressure ulcer L calf hurting Time Seen by Provider: 02/04/21 16:44 Source: patient History of Present Illness HPI narrative: Patient is a 50 y/o female complaining of chronic left lower leg wound for 7 months. Her wound is located on medial aspect of left lower leg. She states that she developed DVT of that legafter receiveing COVID vaccine and her ulcer developed after that. She has some shocking sensation at her wound. She has no fever or chill. Related Data Allergies Allergy/AdvReac Type Severity Reaction Status Date / Time No Known Allergies Allergy Unverified 01/15/21 14:37 Review of Systems Constitutional: Constitutional: Denies chills, Denies fever(s), Denies headache(s) and Denies weakness Eyes: Eyes: Denies blurry vision ENT: Denies headache(s) and Denies neck pain Cardiovascular: Cardiovascular: Denies chest pain and Denies dyspnea Respiratory: Respiratory: Denies cough and Denies dyspnea Gastrointestinal: Gastrointestinal: Denies abdominal pain, Denies diarrhea, Denies nausea and Denies vomiting Genitourinary: Genitourinary: Denies hematuria and Denies dysuria Musculoskeletal: Musculoskeletal: Denies back pain and Denies neck pain Integumentary/Breasts: Skin/Breast: Reports sores (medial apsect of left lower leg) Neurologic: Denies headache(s) and Denies weakness PMFSH Past Medical History Medical History Anxiety Family History Family History Sibling Diabetes mellitus Social History Social History Years smoked: 20 Tobacco type: cigarettes Second hand tobacco smoke exposure: No Smoking end date: 12/23/19 Alcohol intake: never Substance use: never Substance use type: does not use Gender identity (if verbalized by the patient): Female Sexual Orientation (if Verbalized by the Patient): Straight or Heterosexual Exam Const: General: no acute distress and well developed Orientation/consciousness: oriented to person, oriented to place, oriented to time and patient oriented x3 HENMT: Head: normocephalic Ears: external ears normal General nose exam: Normal external nose present Eyes: General: appearance normal, both eyes and all related structures Conjunctivae: conjunctivae normal Neck: Neck: normal visual inspection and full ROM Chest: Chest palpation & inspection: normal inspection of the chest and no tenderness Resp: Effort & Inspection: normal respiratory effort Auscultation: clear to auscultation bilaterally Cardio: Rate: regular rate Rhythm: regular rhythm GI: GI Palp: No abdominal tenderness and Yes Soft to palpation Skin: General skin exam: normal color and turgor normal Wounds: wounds noted (wound on medial aspect of left calf consistent with venous stasis ulcer) Neuro: General: oriented to person, oriented to place, oriented to time and patient oriented x3 Cognition (Neuro): normal cognition Extrem: General: normal to inspection, full ROM and no pedal edema Psych: Appearance: grossly normal Mental Status: mental status grossly normal Affect: normal affect Course Reevaluation(s) Reevaluation #1: Rechecked. Patient states that she has severe pain and demands more pain meds. She states that Toradol did not help. Informed patient that narcotics is inappropriate analgesic for pain related to chronic venous stasis ulcer. I instructed her to follow up with wound care. Date: 02/04/21 Time: 18:20 Consultations Consultation #1: Discussed with Dr. Callaway, who states that her wound has been there for almost 2 years and recommends she follow up with wound care. Date: 02/04/21 Time: 18:26 Vital Signs Vital signs: Vital Signs Temperature 37.1 C 02/04/21 15:30 Pulse Rate 78 02/04/21 15:30 Respiratory Rate 16
[2021-02-04 17:17] LABS: Anion Gap 9 mmol/L (8-16); Blood Urea Nitrogen 10 mg/dL (7-17); Calcium 8.6 mg/dL (8.4-10.2); Carbon Dioxide 28 mmol/L (22-30); Chloride 107 mmol/L (98-107); Estimated CRCL calculation 119 ml/min; Estimated Glomerular Filt Rate > 60; Glucose 95 mg/dL (65-110); Potassium 2.9 mmol/L (3.4-5.0); Sodium 144 mmol/L (137-145)
[2021-02-04] MEDS: POTASSIUM CHLORIDE 20 MEQ TABLET 40 MEQ PO (17:43)
[2021-02-04] MEDS: KETOROLAC (*BKC) 60 MG/2 ML VIAL IM (17:43)
[2021-02-04] MEDS: LIDOCAINE, EPINEPHRINE, TETRACAINE VISCOUS SOLN 3 ML 6 ML TOPICAL (18:15)
--- NOTE | 2021-02-04 18:16 | PC.NURSE ---
Pt has piece of gauze stuck to wound bed that she states she has not been able to remove x2 days. Wound irrigated with normal saline in attempts to remove the gauze. Pt wont let RN try to pull off gauze and is screaming in room. Order obtained for LET and is placed on wound in attempts to numb the area so gauze can be removed. Pt yelling for her PCP Christofer to be called. NATHALY aburto notified.
== END 2021-02-04 18:40 | disposition home or self-care (01) ==
PROVIDERS: Emergency Provider Emergency Medicine; PCP Family Medicine
DX: E87.6 Hypokalemia (principal); I83.022 Varicose veins of left lower extremity with ulcer of calf; F41.9 Anxiety disorder, unspecified; F17.210 Nicotine dependence, cigarettes, uncomplicated
CPT/HCPCS: 36415; 80048; 85025; 96372; 99283; A9270; J1885

== ENCOUNTER 2021-02-23 01:20 | Emergency (ER) | payer OTHER, SELFPAY ==
[2021-02-23 01:33] VITALS: BP 156/79; PULSE 79; RESP 22; TEMP 36.7; O2SAT 100
[2021-02-23 01:56] LABS: Basophils Absolute Auto 0.1 K/mm3 (0.0-0.1); Basophils Percent Auto 0.6 % (0.2-1.2); Eosinophils Absolute Auto 0.8 K/mm3 (0-0.3); Eosinophils Percent Auto 5.9 % (0-4.4); Hematocrit 37.4 % (37.0-47.0); Hemoglobin 11.5 g/dL (12.0-15.0); Immature Granulocyte Absolute 0.06 K/mm3 (0.00-0.031); Immature Granulocyte Percent A 0.5 % (0-0.5); Lymphocytes Absolute Auto 2.12 K/mm3 (0.9-3.2); Lymphocytes Percent Auto 16.8 % (18.3-44.2); Mean Corpuscular HGB Conc 30.7 g/dl (32-36); Mean Corpuscular Hemoglobin 28.2 pg (26-34); Mean Corpuscular Volume 91.7 fl (80-100); Mean Platelet Volume 9.2 fl (7.4-10.4); Monocytes Absolute Auto 1.4 K/mm3 (0.1-0.6); Monocytes Percent Auto 10.9 % (2.6-8.5); Neutrophils Absolute Auto 8.2 K/mm3 (1.3-6.7); Neutrophils Percent Auto 65.3 % (45.5-73.1); Platelet Count Result 442 k/mm3 (150-375); Red Blood Count 4.08 M/mm3 (4.2-5.4); Red Cell Distribution Width 14.2 % (11.5-14.5); White Blood Count 12.6 K/mm3 (4.5-10.0)
[2021-02-23 02:05] LABS: INR 1.1; Prothrombin Time 13.9 Seconds (11.1-14.7)
[2021-02-23 02:06] LABS: Partial Thromboplastin Time 32.2 SECONDS (22.3-36.8)
[2021-02-23 02:08] LABS: Lactic Acid Reflex 0.7 mmol/L (0.7-2.1)
[2021-02-23 02:11] LABS: Alanine Aminotransferase 11 U/L (4-35); Albumin Level 3.5 g/dL (3.5-5.1); Alkaline Phosphatase 145 U/L (38-126); Anion Gap 8 mmol/L (8-16); Aspartate Amino Transferase 17 U/L (14-36); Bilirubin,Total < 0.1 mg/dL (0.2-1.3); Blood Urea Nitrogen 13 mg/dL (7-17); Calcium 8.9 mg/dL (8.4-10.2); Carbon Dioxide 24 mmol/L (22-30); Chloride 111 mmol/L (98-107); Estimated CRCL calculation 88 ml/min; Estimated Glomerular Filt Rate > 60; Glucose 109 mg/dL (65-110); Potassium 4.5 mmol/L (3.4-5.0); Sodium 143 mmol/L (137-145)
[2021-02-23 02:41] LABS: CRP 0.7 mg/dL (<1.0)
--- NOTE | 2021-02-23 03:43 | ED.GENADULT ---
HPI - General Adult General Chief complaint: Extremity Injury, Lower Stated complaint: open wound Time Seen by Provider: 02/23/21 03:08 History of Present Illness HPI narrative: Patient is a 50-year-old female who presents ER with pain to her left lower extremity at the site of a chronic wound. Patient has had a chronic clearing for several months it started off as a venous stasis ulcer and has since progressed. She has history of DVT in the affected leg and is on Xarelto. She receives wound care at [facility]. She was scheduled to have surgery 2 days ago however there was miscommunication and was canceled. This is upset her greatly. She is planning on contacting her wound care doctor tomorrow to schedule follow-up. She is currently taking minocycline that was prescribed by her wound care doctor. She is having no fevers or chills or sweats. No new redness streaking up the leg. She takes hydrocodone 7.5 mg with Tylenol to help control her pain and she ports its not working. She does not tolerate Percocet. She does not like tramadol. Related Data Allergies Allergy/AdvReac Type Severity Reaction Status Date / Time No Known Allergies Allergy Unverified 02/14/21 10:44 Review of Systems Review of Systems: All systems reviewed & are unremarkable except as noted in HPI and below Constitutional: Constitutional: Denies chills, Denies fever(s) and Denies weakness ENT: Denies nasal congestion and Denies sore throat Cardiovascular: Cardiovascular: Denies chest pain, Denies rapid heart rate and Denies radiating jaw, neck or arm pain Respiratory: Respiratory: Denies cough and Denies dyspnea Integumentary/Breasts: Skin/Breast: Denies erythema and Reports skin ulcer Comments: [facility]cer[facility] lower [facility] Past Medical History Medical History (Updated 02/23/21 @ 03:48 by Danny Decker MD) Anxiety Depression DVT (deep venous thrombosis) Essential (primary) hypertension Ulcer of leg, chronic, left Family History Family History Sibling Diabetes mellitus Social History Social History (Updated 02/14/21 @ 10:44 by Annette Goetz CMA) Years smoked: 20 Tobacco type: cigarettes Second hand tobacco smoke exposure: No Smoking end date: 12/23/19 Alcohol intake: never Substance use: never Substance use type: does not use Gender identity (if verbalized by the patient): Female Sexual Orientation (if Verbalized by the Patient): Straight or Heterosexual Exam Narrative: GENERAL: Well-appearing, well-nourished, and in no acute distress. HEAD: Normocephalic, atraumatic. CHEST: Clear to auscultation. No respiratory distress. HEART: Regular rate and rhythm. Normal peripheral pulses. EXTREMITIES: Normal range of motion. No edema. SKIN: Warm, dry. Large ulceration involving the left medial ankle and distal pittman/calf. Fatty tissue noted. No purulent drainage. No surrounding cellulitis or lymphangitic streaking. No fluctuant abscess. NEURO: Alert and oriented x3. PSYCH: Normal mood and affect. Course Course Emergency Course: Chronic appearing wound. CRP normal. White blood cell count slightly elevated however there is no left shift. Patient without fevers or other reports of systemic illness. Will give IM morphine here. She is asking for something to sleep and we have recommended Benadryl as first-line sleep aid. Discussed with her that she should contact her wound care doctor for further treatment evaluation. Vital Signs Vital signs: Vital Signs Temperature 98.0 F 02/23/21 01:33 Pulse Rate 79 02/23/21 01:33 Respiratory Rate 22 H 02/23/21 01:33 Blood Pressure 156/79 H 02/23/21 01:33 Pulse Oximetry 100 02/23/21 01:33 Temperature 98.0 F 02/23/21 01:33 Pulse Rate 79 02/23/21 01:33 Respiratory Rate 22 H 02/23/21 01:33 Blood Pressure 156/79 H 02/23/21 01:33 Pulse Oximetry 100 02/23/21 01:33 Medi
[2021-02-23] MEDS: diphenhydrAMINE HCl CAP 25 MG CAPSULE PO (03:49)
[2021-02-23] MEDS: MORPHINE SULFATE (*CRX) 4 MG/ML INJ IM (03:49)
--- NOTE | 2021-02-23 04:12 | PC.NURSE ---
Pt has continuously cursed, yelled, and screamed at this RN, despite being in a shared room. Pt extremely unhappy that surgery was cancelled, and is calling [facility] staff incompetent .
== END 2021-02-23 05:04 | disposition home or self-care (01) ==
PROVIDERS: Emergency Provider Emergency Medicine; PCP Family Medicine
DX: L97.229 Non-pressure chronic ulcer of left calf with unspecified severity (principal); Z86.718 Personal history of other venous thrombosis and embolism; Z79.01 Long term (current) use of anticoagulants
CPT/HCPCS: 36415; 80053; 83605; 85025; 85610; 85730; 86140; 96372; 99283; A9270; J2270